=== PATIENT | male | born 1960 | race Caucasian/White ===

== ENCOUNTER 2024-03-11 15:03 | Emergency (ER) | payer MEDICARE, SELFPAY ==
--- NOTE | ~2024-03-11 | XR_ITS ---
EXAMINATION: XR FOOT, RIGHT CLINICAL INFORMATION: Injury. Pain. COMPARISON: None available. TECHNIQUE: Three views of the right foot. FINDINGS: Soft tissue laceration at the distal great toe. Bandage around the site. No radiopaque foreign body. No acute osseous abnormality of the great toe. Question possible minimally displaced fracture versus chronic change through the medial proximal shaft of the proximal phalanx of the third toe. Faint radiolucent line extending from the metaphysis to the articular surface of bone seen on image #2 only. Correlate with point tenderness. Degenerative joint narrowing of the IP joints of toes. Mild joint narrowing and marginal bone spurs at the first metatarsal phalangeal joint. Status post arthrodesis of the subtalar joint and talonavicular joint with orthopedic chepe in place. Chronic corticated 1 cm osseous density at the dorsum of the foot adjacent to the neck of the talus. XR/XR foot RT min 3V IMPRESSION: 1. Soft tissue laceration of the distal great toe. No radiopaque foreign body. No acute osseous abnormality of the great toe. 2. Question possible minimally displaced fracture through the medial proximal shaft of the proximal phalanx of the third toe. Correlate with point tenderness. 3. Status post arthrodesis of the subtalar joint and talonavicular joint. Electronically signed by: Eleazar Khoury MD 03/11/2024 04:34 PM EDT
[2024-03-11 15:35] VITALS: BP 147/79; PULSE 109; RESP 18; TEMP 36.8; O2SAT 98; BMI 24.8
--- NOTE | 2024-03-11 15:35 | ED_ITS ---
HPI - General Adult General Chief complaint: Extremity Injury, Lower Stated complaint: ripped skin off big toe, diabetic Time Seen by Provider: 03/11/24 18:15 Source: patient Mode of arrival: ambulatory Limitations: no limitations History of Present Illness ED Provider: jo LOVELACE narrative: Patient's history of diabetes, polio with right leg weakness on metformin not taking medication for last 1 year came as had a small blister at the bottom of right great toe which came off and right great toenail seems to be infected Related Data Previous Rx's ?Medication ?Instructions ?Recorded blood-glucose meter #1 ea 03/11/24 cephalexin 500 mg capsule 500 mg PO QID 10 days #40 caps 03/11/24 doxycycline hyclate 100 mg tablet 100 mg PO BID #20 tabs 03/11/24 metformin 850 mg tablet 850 mg PO BID #180 tabs 03/11/24 Allergies Allergy/AdvReac Type Severity Reaction Status Date / Time amoxicillin [Prevpac] Allergy Unknown Unknown Verified 03/11/24 15:37 clarithromycin [Prevpac] Allergy Unknown Unknown Verified 03/11/24 15:37 lansoprazole [Prevpac] Allergy Unknown Unknown Verified 03/11/24 15:37 omeprazole [From PRILOSEC] Allergy Unknown ANAPHYLAXIS Verified 03/11/24 15:37 From PRILOSEC Allergy Unknown ANAPHYLAXIS Uncoded 05/14/23 14:21 Review of Systems 2 Review of Systems: Yes all other systems are reviewed and are negative [facility] Social History Social History Advance Directives: No Advance Directives Information Provided: Yes Do you have a plan to hurt others: No Plan Physical Exam ED Vital Signs: Vital Signs - 24 hr 03/11/24 15:35 03/11/24 18:05 03/11/24 20:34 Temperature 98.3 F 98.5 F 98.5 F Pulse Rate 109 H 95 95 Respiratory Rate 18 20 20 Blood Pressure 147/79 H 122/69 122/69 Pulse Oximetry 98 98 98 Oxygen Delivery Method Room Air Room Air Room Air BMI result Body Mass Index 24.8 Appearance: Alert. Oriented X3. No acute distress. Eyes: No pallor or icterus ENT: Pharynx normal. Oral Mucosa moist Neck: Normal inspection. Neck supple. CVS: Normal heart rate and rhythm. Pulses normal. Respiratory: No respiratory distress. Equal air entry bilateral, no wheezing/rales/rhonchi Abdomen: Soft and nontender. Bowel sounds are present, no mass palpable, no CVA tenderness Skin: Skin warm and dry. Normal skin color. Normal skin turgor. Extremities: Right leg is affected by polio, right great toe infected toenail with skin and granulomatous tissue neurovascular intact Neuro: Oriented X 3. Course Course Course Narrative: RME performed by Joelle Vázquez PA-C. Patient is a 63 year old assigned male at presenting to the emergency department with a right great toe injury. Patient states that he was walking 2 days ago when he clipped his right great toe. Patient states that he is a diabetic. Detailed physical exam and review of systems are deferred to the entry level account manager. Imaging ordered. Patient placed back in the waiting room pending room availability and results. Medications Administered Discontinued Medications Generic Name Dose Route Start Last Admin Trade Name Freq PRN Reason Stop Dose Admin Cephalexin HCl 500 mg 03/11/24 18:26 03/11/24 19:07 Cephalexin 500 Mg Capsule PO 03/11/24 18:27 500 mg ONCE ONE Administration Doxycycline Monohydrate 100 mg 03/11/24 18:26 03/11/24 19:07 Doxycycline Monohydrate 100 Mg Capsule PO 03/11/24 18:27 100 mg ONCE ONE Administration Insulin Glargine 20 unit 03/11/24 18:26 03/11/24 19:03 Insulin Glargine,Hum.Rec.Anlog 100 Unit/Ml 10 Ml Vial SUBCUT 03/11/24 18:27 20 unit ONCE ONE Administration Insulin Human Lispro 12 unit 03/11/24 18:26 03/11/24 19:09 Insulin Lispro 100 Unit/Ml 3 Ml Vial SUBCUT 03/11/24 18:27 12 unit ONCE ONE Administration Lidocaine HCl 5 ml 03/11/24 18:26 03/11/24 19:06 Lidocaine Hcl 1 % Mpf 5 Ml Vial INFILTRATI 03/11/24 18:27 5 ml ONCE ONE Administration Metformin HCl 1,000 mg 03/11/24 19:45 03/11/24 20:00 Metformin Hcl 1,000 Mg Tablet PO 03/11/24 19:46 1,000 mg ONCE ONE Administration Procedures Procedure Narrative Procedure Narrative: Right great toenail removal: Ring block was given using lidocaine 1% around the right toenail using forceps nail was removed completely without significant blood loss part dressed with iodoform gauze Medical Decision Making Medical Decision Making [facility] Narrative: Patient has infected right great toenail which was removed part was dressed advised to follow up with PCP report to the ER for wound recheck Lab Data [facility] Lab Attestation statement: I reviewed the patient's lab results. 03/11/24 16:59 03/11/24 16:59 Labs: Lab Results 03/11/24 03/11/24 Range/Units 16:59 19:42 WBC 6.6 (4.8-10.8) X10*3/uL RBC 5.00 (4.60-5.80) X10*6/uL Hgb 14.9 (14.0-18.0) g/dl Hct 42.4 (42.0-52.0) % MCV 84.8 (80.0-98.0) fL MCH 29.8 (27.0-33.0) pg MCHC 35.1 (31.0-36.0) g/dl RDW 12.2 (11.0-16.0) % Plt Count 215 (160-400) X10*3/uL MPV 9.7 (9.4-12.4) fL Immature Gran % (Auto) 0.3 (0.0-0.4) % Neut % (Auto) 68.3 (45-73) % Lymph % (Auto) 20.3 (20-40) % Ashley % (Auto) 8.8 (2-11) % Eos % (Auto) 1.5 (0-4) % Baso % (Auto) 0.8 (0-2) % Lymph # (Auto) 1.3 (1.2-4.9) X10*3/uL Ashley # (Auto) 0.6 (0.1-1.2) X10*3/uL Eos # (Auto) 0.1 (0.0-0.4) X10*3/uL Baso # (Auto) 0.1 (0.0-0.2) X10*3/uL Abs Immat Gran (auto) 0.02 (0.00-0.03) X10*3/uL Absolute Neuts (auto) 4.5 (2.0-8.3) x10*3/uL Absolute Nucleated RBC 0.000 (0.0-0.012) X10*3/uL Nucleated RBC % (auto) 0.0 (0.0-0.2) /100WBC ESR 16 H (0-15) MM/HR Sodium 136 (135-145) mmol/L Potassium 4.1 (3.3-5.1) mmol/L Chloride 99 (96-108) mmol/L Carbon Dioxide 26 (22-29) mmol/L Anion Gap 15 (12-20) BUN 17 H (9-16) mg/dL Creatinine 1.11 (0.5-1.4) mg/dL Estim Creat Clear Calc 67.2 Estimated GFR > 60 POC Glucose 338 H (60-115) mg/dL Random Glucose 441 H* (60-115) mg/dL Calcium 9.4 (8.4-10.2) mg/dL Total Bilirubin 0.5 (0.0-1.0) mg/dL AST 13 (5-37) U/L ALT 13 (0-40) U/L Alkaline Phosphatase 111 (39-117) U/L C-Reactive Protein 0.96 H (< or = 0.50) mg/dL Total Protein 6.6 (6.5-8.0) g/dL Albumin 3.7 (3.5-5.0) g/dL Discharge Plan Discharge Clinical Impression: Infected blister of toe of right foot, Diabetes mellitus with hyperglycemia Patient Disposition: Home, Self-Care Instructions: Diabetic Hyperglycemia (ED), Acute Wounds (ED) Additional Instructions: Drink plenty of fluids Take antibiotic as prescribed Local care of the wound as advised Check her blood sugar at least 2 times a day should be less than 200 Follow with PCP Report to the ER for wound recheck tomorrow Prescriptions: New cephalexin 500 mg capsule 500 mg PO QID 10 Days Qty: 40 0RF doxycycline hyclate 100 mg tablet 100 mg PO BID Qty: 20 0RF metformin 850 mg tablet 850 mg PO BID Qty: 180 0RF (DME) blood-glucose meter Kit See Rx Instructions .Route Qty: 1 0RF Rx Instructions: As directed Referrals: Mony Staples MD [Physician] - 3 days Interventions: ED Discharge Assessment Last Done: 03/11/24 20:34 Discharge Date/Time: 03/11/24 20:34 Print Language: Maori
[2024-03-11 17:05] LABS: MANUAL DIFF FLAG NO
[2024-03-11 17:09] LABS: Basophils Absolute Auto 0.1 X10*3/uL (0.0-0.2); Basophils Percent Auto 0.8 % (0-2); Eosinophils Absolute Auto 0.1 X10*3/uL (0.0-0.4); Eosinophils Percent Auto 1.5 % (0-4); Hematocrit 42.4 % (42.0-52.0); Hemoglobin 14.9 g/dl (14.0-18.0); Imm Gran Abs Auto 0.02 X10*3/uL (0.00-0.03); Imm Gran Pct Auto 0.3 % (0.0-0.4); Lymphocytes Absolute Auto 1.3 X10*3/uL (1.2-4.9); Lymphocytes Percent Auto 20.3 % (20-40); Mean Corpuscular HGB Conc 35.1 g/dl (31.0-36.0); Mean Corpuscular Hemoglobin 29.8 pg (27.0-33.0); Mean Corpuscular Volume 84.8 fL (80.0-98.0); Mean Platelet Volume 9.7 fL (9.4-12.4); Monocytes Absolute Auto 0.6 X10*3/uL (0.1-1.2); Monocytes Percent Auto 8.8 % (2-11); Neutrophils Absolute Auto 4.5 x10*3/uL (2.0-8.3); Neutrophils Percent Auto 68.3 % (45-73); Platelet Count 215 X10*3/uL (160-400); Red Cell Distribution Width 12.2 % (11.0-16.0); White Blood Count 6.6 X10*3/uL (4.8-10.8)
[2024-03-11 17:29] LABS: Alanine Aminotransferase 13 U/L (0-40); Albumin Level 3.7 g/dL (3.5-5.0); Alkaline Phosphatase 111 U/L (39-117); Anion Gap 15 (12-20); Aspartate Amino Transferase 13 U/L (5-37); Bilirubin Total 0.5 mg/dL (0.0-1.0); Blood Urea Nitrogen 17 mg/dL (9-16); C Reactive Protein 0.96 mg/dL (< or = 0.50); Calcium 9.4 mg/dL (8.4-10.2); Carbon Dioxide 26 mmol/L (22-29); Chloride 99 mmol/L (96-108); Creatinine Clr Calc Pharmacy 67.2; Estimated Glomerular Filt Rate > 60; Potassium 4.1 mmol/L (3.3-5.1); Sodium 136 mmol/L (135-145); Total Protein 6.6 g/dL (6.5-8.0)
[2024-03-11 18:05] VITALS: BP 122/69; PULSE 95; RESP 20; TEMP 36.9; O2SAT 98
[2024-03-11 18:13] LABS: Erythrocyte Sedimentation Rate 16 MM/HR (0-15)
[2024-03-11] MEDS: Insulin Glargine,Hum.rec.anlog 100 UNIT/ML 10 ML VIAL 20 UNIT SUBCUT (19:03)
[2024-03-11] MEDS: Lidocaine HCl 1 % MPF 5 ML VIAL INFILTRATI (19:06)
[2024-03-11] MEDS: Doxycycline Monohydrate 100 MG CAPSULE PO (19:07)
[2024-03-11] MEDS: cephALEXin 500 MG CAPSULE PO (19:07)
[2024-03-11] MEDS: Insulin Lispro 100 UNIT/ML 3 ML VIAL 12 UNIT SUBCUT (19:09)
[2024-03-11 19:26] LABS: Glucose Random 441 mg/dL (60-115)
[2024-03-11 19:46] LABS: Glucose, Whole Blood 338 mg/dL (60-115)
[2024-03-11] MEDS: metFORMIN HCl 1,000 MG TABLET 1000 MG PO (20:00)
[2024-03-11 20:34] VITALS: BP 122/69; PULSE 95; RESP 20; TEMP 36.9; O2SAT 98
== END 2024-03-11 20:34 | disposition home or self-care (01) ==
PROVIDERS: Physician Assistant Medical; Emergency Provider Internal Medicine
DX: S90.421A Blister (nonthermal), right great toe, initial encounter (principal); X58.XXXA Exposure to other specified factors, initial encounter; L03.031 Cellulitis of right toe; E11.65 Type 2 diabetes mellitus with hyperglycemia; Y93.9 Activity, unspecified; Y92.9 Unspecified place or not applicable; Y99.9 Unspecified external cause status
CPT/HCPCS: 36415; 73630; 80053; 82947; 85025; 85652; 86140; 99283